=== PATIENT | male | born 1985 | race Caucasian/White ===

== ENCOUNTER 2021-02-27 15:17 | Emergency (ER) | payer OTHER, SELFPAY ==
[~2021-02-27] VITALS: Ht 175.3 cm; Wt 90.0 kg
[2021-02-27 15:24] VITALS: BP 136/96
[2021-02-27 16:11] LABS: BASOPHILS % (AUTO) 1 % (0-1); EOSINOPHILS % (AUTO) 5 % (1-7); LYMPHOCYTES % (AUTO) 24 % (22-44); MEAN CORPUSCULAR HEMOGLOBIN 30.6 pg (27.5-34.5); MEAN CORPUSCULAR HGB CONC 34.4 g/dL (33.2-36.2); MEAN PLATELET VOLUME 7.9 fL (7.4-10.4); MONOCYTES % (AUTO) 11 % (2-9); NEUTROPHILS % (AUTO) 59 % (42-75); PLATELET COUNT 331 x10^3/uL (130-400); RED BLOOD COUNT 5.01 x10^6/uL (4.38-5.82); RED CELL DISTRIBUTION WIDTH 13.3 % (9.4-14.8)
[2021-02-27 16:23] LABS: ALBUMIN 3.8 g/dL (3.4-5.0); ANION GAP 7 mmol/L (5-15); CHLORIDE 106 mmol/L (98-107); CREATININE 1.06 mg/dL (0.7-1.3)
--- NOTE | 2021-02-27 16:31 | NUR ---
staff toxicologist note: Pt to room from lobby.
[2021-02-27] MEDS ORDERED: CEFTRIAXONE 1,000 MG in SODIUM CHLORIDE 0.9% 50 ML IVPB ONE (17:00)
--- NOTE | 2021-02-27 18:49 | NUR ---
REPORT FROM DANIELA ABERNATHY
== END 2021-02-27 19:48 | disposition home or self-care (01) ==
LOC: ED 19:25
DX: L03.115 Cellulitis of right lower limb (principal)
CPT/HCPCS: 36415; 73610; 80048; 82040; 85025; 93971; 96365; 99285; J0696